=== PATIENT | male | born 1940 | race Caucasian/White ===

== ENCOUNTER → 2020-11-22 | Outpatient (RCR) | payer MEDICARE | LOC: PT 11-09 15:10 | PROVIDERS: ATTEND Neurological Surgery | DX: M43.16 Spondylolisthesis, lumbar region (principal) ==

== ENCOUNTER 2020-12-01 13:42 | Outpatient (RCR) | payer MEDICARE | END 2020-12-22 | LOC: PT 13:42 | PROVIDERS: ATTEND Neurological Surgery | DX: M43.16 Spondylolisthesis, lumbar region (principal) ==